=== PATIENT | male | born 1990 | race Caucasian/White ===

== ENCOUNTER → 2018-04-30 | Outpatient (CLI) | payer OTHER | LOC: FIMAGING 07:53 | PROVIDERS: ATTEND Radiology Diagnostic Radiology | DX: R16.0 Hepatomegaly, not elsewhere classified (principal); Z98.890 Other specified postprocedural states ==

== ENCOUNTER → 2018-05-01 | Outpatient (CLI) | payer OTHER | LOC: FIMAGING 08:09 | PROVIDERS: ATTEND Radiology Diagnostic Radiology | DX: Z09 Encounter for follow-up examination after completed treatment for conditions other than malignant neoplasm (principal); Z98.890 Other specified postprocedural states; K21.9 Gastro-esophageal reflux disease without esophagitis ==

== ENCOUNTER → 2019-01-20 | Outpatient (CLI) | payer OTHER | LOC: FIMAGING 11:47 ==